=== PATIENT | female | born 1945 | race Caucasian/White ===

== ENCOUNTER 2021-06-16 11:05 | Day surgery (SDC) | payer MEDICARE ==
[~2021-06-16] VITALS: Ht 172.7 cm; Wt 75.5 kg
[2021-06-16] MEDS ORDERED: PLEASE ENTER HEIGHT AND WEIGHT MC SCH (12:00)
[2021-06-16] MEDS ORDERED: APIX5TAB PO (12:00)
[2021-06-16] MEDS ORDERED: SODIUM CHLORIDE 0.9% 1,000 ML IV SCH (12:00)
[2021-06-16] MEDS ORDERED: Byetta SC (12:00)
[2021-06-16] MEDS ORDERED: GLIP10TA13 PO (12:02)
[2021-06-16] MEDS ORDERED: METF850T10 PO (12:02)
[2021-06-16] MEDS ORDERED: EXEN10PE3 SC (12:02)
[2021-06-16] MEDS ORDERED: lisinopril PO (12:03)
[2021-06-16] MEDS ORDERED: CO-Q10 (12:05)
[2021-06-16] MEDS ORDERED: GARL10002 PO (12:05)
[2021-06-16] MEDS ORDERED: co (12:05)
[2021-06-16] MEDS ORDERED: Cinnamon (12:09)
[2021-06-16] MEDS ORDERED: MAGN400T9 PO (12:10)
[2021-06-16 12:14] VITALS: BP 180/99
[2021-06-16 12:20] LABS: BASOPHILS % (AUTO) 1 % (0-1); EOSINOPHILS % (AUTO) 2 % (1-7); LYMPHOCYTES % (AUTO) 29 % (22-44); MEAN CORPUSCULAR HEMOGLOBIN 29.3 pg (27.0-34.8); MEAN PLATELET VOLUME 7.5 fL (7.4-10.4); MONOCYTES % (AUTO) 6 % (2-9); NEUTROPHILS % (AUTO) 63 % (42-75); PLATELET COUNT 489 x10^3/uL (130-400); RED BLOOD COUNT 3.89 x10^6/uL (3.82-5.3); RED CELL DISTRIBUTION WIDTH 14.4 % (9.6-15.2)
[2021-06-16] MEDS ORDERED: MIDAZOLAM 1 MG/ML, 2ML ONE (12:28)
[2021-06-16] MEDS ORDERED: LIDOCAINE 1%, 20ML ONE (12:28)
[2021-06-16] MEDS ORDERED: FENTANYL PF 100 MCG/2ML ONE (12:28)
[2021-06-16] MEDS ORDERED: ISOPROTERENOL 0.2MG/ML, 5ML ONE (12:28)
[2021-06-16 12:29] LABS: ANION GAP 7 mmol/L (5-15); CHLORIDE 107 mmol/L (98-107); CREATININE 1.85 mg/dL (0.55-1.02)
[2021-06-16 12:31] LABS: INTERNATIONAL NORMALIZED RATIO 0.95 (0.93-1.1); PROTHROMBIN TIME 10.2 Seconds (9.6-11.5)
[2021-06-16] MEDS ORDERED: ACETAMINOPHEN 325 MG TABLET PO PRN (14:30)
[2021-06-16] MEDS ORDERED: ONDANSETRON 2MG/ML, 2ML IVPush PRN (14:30)
== END 2021-06-16 23:59 | disposition home or self-care (01) ==
LOC: CACL 11:05 → 5SO 16:37 → CACL 23:59
PROVIDERS: ATTEND Internal Medicine Clinical Cardiac Electrophysiology
DX: I47.1 Supraventricular tachycardia (principal); I48.0 Paroxysmal atrial fibrillation; E11.9 Type 2 diabetes mellitus without complications; I10 Essential (primary) hypertension; E78.5 Hyperlipidemia, unspecified; Z88.0 Allergy status to penicillin; Z79.899 Other long term (current) drug therapy; Z79.01 Long term (current) use of anticoagulants; Z86.73 Personal history of transient ischemic attack (TIA), and cerebral infarction without residual deficits; Z79.84 Long term (current) use of oral hypoglycemic drugs; Z98.890 Other specified postprocedural states
CPT/HCPCS: 36415; 80048; 85025; 85610; 93653; 99156; 99157; C1730; C1766; C1894; C2630; J2250; J3010; G0378